=== PATIENT | male | born 1955 | race African-American/Black ===

== ENCOUNTER 2021-11-27 16:20 | Inpatient (IN) | payer BC, OTHER ==
[~2021-11-27] VITALS: Ht 167.6 cm; Wt 97.5 kg
[2021-11-27] MEDS ORDERED: SODIUM CHLORIDE 0.9% 1,000 ML IV ONE (16:45)
[2021-11-27] MEDS ORDERED: INSULIN REGULAR (DRIP) 100 UNITS in SODIUM CHLORIDE 0.9% 100 ML IV ONE (16:45)
[2021-11-27] MEDS ORDERED: INSULIN REGULAR 100U/100ML PMX 100 ML IV SCH ×2 (17:00→20:30)
[2021-11-27 17:05] LABS: BG BASE EXCESS -5.5 mmol/L (-2.0-2.0); BG CARBOXYHEMOGLOBIN 1.2 % (0.5-1.5); BG FRACTION INSPIRED OXYGEN 44; BG HCO3 ACT 18.8 mmol/L (22.0-26.0); BG METHEMOGLOBIN 0.4 % (0.0-1.5); BG OXYHEMOGLOBIN 97.4 % (94.0-97.0); BG PCO2 33.6 mmHg (35.0-45.0); BG PH 7.366 (7.350-7.450); BG PO2 141.4 mmHg (75.0-100.0); BG SAMPLE SITE RIGHT BRACHIAL; BG TOTAL HEMOGLOBIN 14.4 g/dL (12.0-18.0); BG VENT MODE NASAL CANNULA
[2021-11-27 17:09] LABS: HEMOGLOBIN. 13.2 g/dL (14.0-18.0); MEAN CORPUSCULAR HEMOGLOBIN 30.4 pg (28.0-32.0); MEAN CORPUSCULAR VOLUME 93.9 fL (80.0-94.0); MEAN PLATELET VOLUME 8.3 fl (7.4-10.4); PLATELET 256 x1000/uL (130-400); RED BLOOD CELL COUNT 4.36 mill/uL (4.7-6.1); RED CELL DISTRIBUTION WIDTH 15.5 % (11.6-14.6)
[2021-11-27 17:17] LABS: CHLORIDE 93 mEq/L (98-107)
[2021-11-27 17:46] LABS: PHOSPHORUS 8.3 mg/dL (2.5-4.9)
[2021-11-27 18:02] LABS: BETA HYDROXYBUTYRATE 0.2 mMol/L (0.0-0.3)
[2021-11-27 18:11] LABS: CLARITY URINE TURBID (CLEAR); COLOR URINE YELLOW (YELLOW); KETONES URINE NEGATIVE (NEGATIVE); LEUKOCYTE ESTERASE URINE 3+ (NEGATIVE); NITRITE URINE POSITIVE (NEGATIVE); OCCULT BLOOD URINE 3+ (NEGATIVE); PH URINE 5.5 (4.5-8.0); PROTEIN URINE 3+ (NEGATIVE); SPECIFIC GRAVITY URINE 1.014 (1.005-1.030); UROBILINOGEN URINE 0.2 E.U./dL (0.2-1.0)
[2021-11-27] MEDS ORDERED: CALCIUM GLUCONATE 1,000 MG in DEXT 5% WATER 100 ML IV ONE (18:15)
[2021-11-27 18:30] LABS: PLATELET ESTIMATE NORMAL
[2021-11-27] MEDS ORDERED: VANCOMYCIN 1G PREMIX 200 ML IV ONE (18:30)
[2021-11-27] MEDS ORDERED: CEFTRIAXONE 1 G PREMIX 50 ML IV ONE (18:30)
[2021-11-27] MEDS ORDERED: CALCIUM GLUCONATE 1GM PREMIX 50 ML IV NR (19:30)
[2021-11-27] MEDS ORDERED: NOREPINEPHRINE 8MG/250ML PMX 250 ML IV ONE (19:45)
[2021-11-27] MEDS ORDERED: DEXTROSE 50% WATER 50ML SYRINGE IV PRN ×2 (20:30)
[2021-11-27] MEDS ORDERED: MAGNESIUM/ALUMINUM HYDROXIDE/SIMETHICONE 30ML UDC PO PRN (20:30)
[2021-11-27] MEDS ORDERED: ZOLPIDEM TARTRATE 5MG TABLET PO PRN (20:30)
[2021-11-27] MEDS ORDERED: KETOROLAC 15MG/ML VIAL IV PRN (20:30)
[2021-11-27] MEDS ORDERED: NOREPINEPHRINE 8 MG in DEXT 5% WATER 242 ML IV PRN (20:30)
[2021-11-27] MEDS ORDERED: SODIUM CHLORIDE 0.9% 1000ML BAG (SEPSIS BOLUS) IV SCH (20:30)
[2021-11-27] MEDS ORDERED: ONDANSETRON HCL 4MG/2ML INJ IV PRN (20:30)
[2021-11-27] MEDS ORDERED: CLONIDINE 0.1MG TABLET PO PRN (20:30)
[2021-11-27] MEDS ORDERED: ENOXAPARIN 40MG/0.4ML SYR SUBCUT SCH (20:30)
[2021-11-27] MEDS ORDERED: NITROGLYCERIN 0.4MG TABLET SL SL PRN (20:30)
[2021-11-27] MEDS ORDERED: IPRATROPIUM/ALBUTEROL 0.5-3(2.5)MG/3ML NEB NEB PRN (20:30)
[2021-11-27] MEDS ORDERED: ACETAMINOPHEN 325MG TABLET PO PRN (20:30)
[2021-11-27] MEDS ORDERED: GUAIFENESIN 200MG/10ML SUGAR FREE UDC PO PRN (20:30)
[2021-11-27 21:00] LABS: *AMPHETAMINES SCREEN URINE NEGATIVE (NEGATIVE); *BARBITURATES SCREEN URINE NEGATIVE (NEGATIVE); *BENZODIAZEPINES SCREEN URINE NEGATIVE (NEGATIVE); *COCAINE SCREEN URINE NEGATIVE (NEGATIVE); CANNABINOID URINE SCREEN NEGATIVE (NEGATIVE); METHADONE URINE SCREEN NEGATIVE (NEGATIVE); OPIATES URINE SCREEN NEGATIVE (NEGATIVE); PHENCYCLIDINE URINE SCREEN NEGATIVE (NEGATIVE)
[2021-11-27] MEDS ORDERED: NOREPINEPHRINE 8MG/250ML PMX 250 ML IV PRN (21:00)
[2021-11-27] MEDS: BLOOD SUGAR DIAGNOSTIC STRIP TEST SCH ×2 (21:10→22:19)
[2021-11-27 21:23] LABS: VITAMIN B12 SERUM 1494 pg/mL (211-911)
[2021-11-27 21:28] LABS: FOLIC ACID (FOLATE) SERUM > 20.00 ng/mL (>5.38)
[2021-11-27] MEDS: SODIUM CHLORIDE 0.9% 1,000 ML IV SCH (21:41)
[2021-11-27] MEDS: ENOXAPARIN 30MG/0.3ML SYR SUBCUT SCH (21:41)
[2021-11-27] MEDS ORDERED: VANCOMYCIN 1G PREMIX 200 ML IV SCH (22:00)
[2021-11-27] MEDS ORDERED: PIPERACILLIN/TAZ 3.375G PREMIX 50 ML IV SCH ×2 (22:00)
[2021-11-27 22:58] LABS: CREATINE KINASE MB FRACTION 195.3 ng/mL (0.5-3.6)
[2021-11-28] VITALS (114 sets, daily range): BP systolic 50–177; BP diastolic 24–101
[2021-11-28] MEDS: NOREPINEPHRINE 8 MG in DEXT 5% WATER 242 ML IV PRN ×4 (00:30→19:03)
[2021-11-28] MEDS: SODIUM CHLORIDE 0.9% 1,000 ML IV SCH (00:30)
[2021-11-28] MEDS: BLOOD SUGAR DIAGNOSTIC STRIP TEST SCH ×19 (01:00→23:53)
[2021-11-28 06:00] LABS: HEMATOCRIT. 42.9 % (42.0-52.0); HEMOGLOBIN. 14.2 g/dL (14.0-18.0); MEAN CORPUSCULAR HEMOGLOBIN 30.6 pg (28.0-32.0); MEAN CORPUSCULAR VOLUME 92.8 fL (80.0-94.0); MEAN PLATELET VOLUME 8.2 fl (7.4-10.4); PLATELET 232 x1000/uL (130-400); RED BLOOD CELL COUNT 4.63 mill/uL (4.7-6.1); RED CELL DISTRIBUTION WIDTH 15.8 % (11.6-14.6)
[2021-11-28 06:48] LABS: CREATINE KINASE MB FRACTION 133.6 ng/mL (0.5-3.6)
[2021-11-28 07:13] LABS: CHLORIDE 103 mEq/L (98-107)
[2021-11-28 07:41] LABS: PHOSPHORUS 8.3 mg/dL (2.5-4.9)
[2021-11-28 07:52] LABS: PLATELET ESTIMATE NORMAL
[2021-11-28 08:29] LABS: CREATINE KINASE 72777 IU/L (39-308)
[2021-11-28] MEDS: ASPIRIN 325MG EC TABLET PO SCH ×2 (08:46→08:50)
[2021-11-28] MEDS: PANTOPRAZOLE SODIUM 40 MG/VIAL IV SCH (08:46)
[2021-11-28] MEDS ORDERED: PIPERACILLIN/TAZ 3.375G PREMIX 50 ML IV SCH (09:00)
[2021-11-28] MEDS: PIPERACILLIN/TAZOBACTAM 3.375 G in DEXTROSE 5% WATER 50 ML IV SCH ×2 (09:32→21:42)
[2021-11-28] MEDS ORDERED: SODIUM POLYSTYRENE SULFONATE 15 G/60 ML BOT PO NR (10:00)
[2021-11-28] MEDS ORDERED: VANCOMYCIN 2,000 MG in DEXT 5% WATER 500 ML IV SCH (10:00)
[2021-11-28] MEDS ORDERED: SODIUM BICARBONATE 8.4% 1 MEQ/ML 50ML SYR IV NR (10:00)
[2021-11-28] MEDS ORDERED: DEXT 5%/0.9% NACL 1,000 ML IV SCH (11:15)
[2021-11-28] MEDS: SODIUM BICARBONATE 75 MEQ in SODIUM CHLORIDE 0.45% 1,000 ML IV SCH (11:38)
[2021-11-28 12:37] LABS: INR 1.1; PARTIAL THROMBOPLASTIN TIME 29.6 sec (23.4-31.0); PROTHROMBIN TIME 11.5 sec (9.6-11.0)
[2021-11-28 13:02] LABS: HEPATITIS B SURFACE ANTIGEN NEGATIVE
[2021-11-28] MEDS ORDERED: LIDOCAINE HCL/PF 1% 10 MG/ML 5ML VIAL ONE (13:08)
[2021-11-28] MEDS: INSULIN REGULAR 100U/100ML PMX 100 ML IV SCH ×2 (17:43)
[2021-11-28] MEDS: ENOXAPARIN 30MG/0.3ML SYR SUBCUT SCH (21:18)
[2021-11-29] VITALS (96 sets, daily range): BP systolic 47–155; BP diastolic 17–116
[2021-11-29] MEDS: SODIUM BICARBONATE 75 MEQ in SODIUM CHLORIDE 0.45% 1,000 ML IV SCH ×4 (00:04→21:54)
[2021-11-29] MEDS: NOREPINEPHRINE 8 MG in DEXT 5% WATER 242 ML IV PRN ×4 (00:11→22:49)
[2021-11-29] MEDS: BLOOD SUGAR DIAGNOSTIC STRIP TEST SCH ×20 (01:00→22:49)
[2021-11-29 05:37] LABS: HEMATOCRIT. 38.1 % (42.0-52.0); HEMOGLOBIN. 12.8 g/dL (14.0-18.0); MEAN CORPUSCULAR HEMOGLOBIN 30.7 pg (28.0-32.0); MEAN CORPUSCULAR VOLUME 91.4 fL (80.0-94.0); MEAN PLATELET VOLUME 8.8 fl (7.4-10.4); PLATELET 204 x1000/uL (130-400); RED BLOOD CELL COUNT 4.17 mill/uL (4.7-6.1); RED CELL DISTRIBUTION WIDTH 15.4 % (11.6-14.6)
[2021-11-29 06:03] LABS: PHOSPHORUS 7.8 mg/dL (2.5-4.9)
[2021-11-29 06:19] LABS: CHLORIDE 102 mEq/L (98-107)
[2021-11-29 06:44] LABS: CREATINE KINASE 34245 IU/L (39-308)
[2021-11-29] MEDS: PANTOPRAZOLE SODIUM 40 MG/VIAL IV SCH (09:15)
[2021-11-29] MEDS: ASPIRIN 325MG EC TABLET PO SCH (09:16)
[2021-11-29] MEDS: PIPERACILLIN/TAZOBACTAM 3.375 G in DEXTROSE 5% WATER 50 ML IV SCH ×2 (09:16→21:51)
[2021-11-29 10:51] LABS: PLATELET ESTIMATE NORMAL
[2021-11-29] MEDS: ENOXAPARIN 30MG/0.3ML SYR SUBCUT SCH (21:54)
[2021-11-30] VITALS (95 sets, daily range): BP systolic 58–167; BP diastolic 22–119
[2021-11-30] MEDS: BLOOD SUGAR DIAGNOSTIC STRIP TEST SCH ×11 (00:39→18:23)
[2021-11-30] MEDS: ACETAMINOPHEN 325MG TABLET PO PRN ×2 (01:38→12:45)
[2021-11-30] MEDS: NOREPINEPHRINE 8 MG in DEXT 5% WATER 242 ML IV PRN ×2 (01:43→08:57)
[2021-11-30 05:09] LABS: CHLORIDE 98 mEq/L (98-107)
[2021-11-30 05:11] LABS: HEMATOCRIT. 34.5 % (42.0-52.0); HEMOGLOBIN. 11.4 g/dL (14.0-18.0); MEAN CORPUSCULAR VOLUME 90.9 fL (80.0-94.0); MEAN PLATELET VOLUME 8.4 fl (7.4-10.4); PLATELET 196 x1000/uL (130-400); RED BLOOD CELL COUNT 3.79 mill/uL (4.7-6.1); RED CELL DISTRIBUTION WIDTH 15.1 % (11.6-14.6)
[2021-11-30 05:33] LABS: PHOSPHORUS 6.5 mg/dL (2.5-4.9)
[2021-11-30 06:07] LABS: CREATINE KINASE 35304 IU/L (39-308)
[2021-11-30] MEDS: PIPERACILLIN/TAZOBACTAM 3.375 G in DEXTROSE 5% WATER 50 ML IV SCH (08:04)
[2021-11-30] MEDS: ASPIRIN 325MG EC TABLET PO SCH (08:04)
[2021-11-30] MEDS: PANTOPRAZOLE SODIUM 40 MG/VIAL IV SCH (08:04)
[2021-11-30] MEDS ORDERED: DEXTROSE 50% WATER 50ML SYRINGE IV PRN (08:45)
[2021-11-30] MEDS: INSULIN GLARGINE 100 UNITS/ML SUBCUT SCH (10:07)
[2021-11-30 10:31] LABS: PLATELET ESTIMATE NORMAL
[2021-11-30] MEDS: INSULIN LISPRO 100 UNITS/ML SUBCUT SCH ×3 (12:42→21:00)
[2021-11-30] MEDS: MIDODRINE HCL 5MG TABLET PO SCH ×2 (12:45→16:40)
[2021-11-30] MEDS: NOREPINEPHRINE 32 MG in DEXT 5% WATER 218 ML IV PRN (13:53)
[2021-11-30] MEDS: MEROPENEM 1000MG in NORMAL SALINE 100ML IV SCH (14:15)
[2021-11-30] MEDS: ENOXAPARIN 30MG/0.3ML SYR SUBCUT SCH (20:27)
[2021-12-01] VITALS (89 sets, daily range): BP systolic 71–157; BP diastolic 38–86
[2021-12-01] MEDS: BLOOD SUGAR DIAGNOSTIC STRIP TEST SCH ×4 (00:18→18:09)
[2021-12-01] MEDS: INSULIN LISPRO 100 UNITS/ML SUBCUT SCH ×4 (00:26→18:00)
[2021-12-01 05:03] LABS: HEMATOCRIT. 27.5 % (42.0-52.0); HEMOGLOBIN. 9.2 g/dL (14.0-18.0); MEAN CORPUSCULAR HEMOGLOBIN 30.4 pg (28.0-32.0); MEAN CORPUSCULAR VOLUME 91.2 fL (80.0-94.0); PLATELET 174 x1000/uL (130-400); RED BLOOD CELL COUNT 3.02 mill/uL (4.7-6.1); RED CELL DISTRIBUTION WIDTH 14.8 % (11.6-14.6)
[2021-12-01 05:54] LABS: PHOSPHORUS 8.3 mg/dL (2.5-4.9)
[2021-12-01 08:11] LABS: PLATELET ESTIMATE NORMAL
[2021-12-01] MEDS: ASPIRIN 325MG EC TABLET PO SCH (08:36)
[2021-12-01] MEDS: MIDODRINE HCL 5MG TABLET PO SCH ×3 (08:36→18:10)
[2021-12-01] MEDS: PANTOPRAZOLE SODIUM 40 MG/VIAL IV SCH (08:36)
[2021-12-01] MEDS: INSULIN GLARGINE 100 UNITS/ML SUBCUT SCH (09:39)
[2021-12-01] MEDS: MEROPENEM 1000MG in NORMAL SALINE 100ML IV SCH (12:13)
[2021-12-01] MEDS: ENOXAPARIN 40MG/0.4ML SYR SUBCUT SCH (18:10)
[2021-12-01] MEDS: ACETAMINOPHEN 325MG TABLET PO PRN (18:59)
[2021-12-01] MEDS: CALCIUM GLUCONATE 1GM PREMIX 50 ML IV SCH (20:21)
[2021-12-01] MEDS ORDERED: CALCIUM GLUCONATE 100MG/ML 10ML VIAL IV SCH (21:00)
[2021-12-02] VITALS (76 sets, daily range): BP systolic 59–143; BP diastolic 37–82
[2021-12-02] MEDS: BLOOD SUGAR DIAGNOSTIC STRIP TEST SCH ×5 (00:05→23:05)
[2021-12-02] MEDS: ACETAMINOPHEN 325MG TABLET PO PRN ×2 (04:32→12:24)
[2021-12-02] MEDS: INSULIN LISPRO 100 UNITS/ML SUBCUT SCH ×5 (06:00→23:10)
[2021-12-02 06:10] LABS: HEMATOCRIT. 27.2 % (42.0-52.0); HEMOGLOBIN. 9.2 g/dL (14.0-18.0); MEAN CORPUSCULAR HEMOGLOBIN 30.4 pg (28.0-32.0); MEAN CORPUSCULAR VOLUME 90.3 fL (80.0-94.0); MEAN PLATELET VOLUME 7.9 fl (7.4-10.4); PLATELET 170 x1000/uL (130-400); RED BLOOD CELL COUNT 3.01 mill/uL (4.7-6.1); RED CELL DISTRIBUTION WIDTH 14.8 % (11.6-14.6)
[2021-12-02 06:23] LABS: PHOSPHORUS 7.3 mg/dL (2.5-4.9)
[2021-12-02 07:56] LABS: PLATELET ESTIMATE NORMAL
[2021-12-02] MEDS: ASPIRIN 325MG EC TABLET PO SCH (09:07)
[2021-12-02] MEDS: MIDODRINE HCL 5MG TABLET PO SCH ×3 (09:07→16:54)
[2021-12-02] MEDS: DOCUSATE SODIUM 100MG CAPSULE PO PRN (09:07)
[2021-12-02] MEDS: PANTOPRAZOLE SODIUM 40 MG/VIAL IV SCH (09:08)
[2021-12-02] MEDS: CALCIUM GLUCONATE 1GM PREMIX 50 ML IV SCH ×2 (09:08→20:04)
[2021-12-02] MEDS: INSULIN GLARGINE 100 UNITS/ML SUBCUT SCH (10:12)
[2021-12-02] MEDS: MEROPENEM 1000MG in NORMAL SALINE 100ML IV SCH (12:57)
[2021-12-02] MEDS: ENOXAPARIN 40MG/0.4ML SYR SUBCUT SCH (16:53)
[2021-12-02] MEDS: NOREPINEPHRINE 32 MG in DEXT 5% WATER 218 ML IV PRN (23:09)
[2021-12-03] VITALS (76 sets, daily range): BP systolic 70–139; BP diastolic 35–99
[2021-12-03] MEDS: BLOOD SUGAR DIAGNOSTIC STRIP TEST SCH ×4 (05:17→23:42)
[2021-12-03] MEDS: INSULIN LISPRO 100 UNITS/ML SUBCUT SCH ×4 (05:25→23:56)
[2021-12-03 05:27] LABS: HEMOGLOBIN. 8.5 g/dL (14.0-18.0); MEAN PLATELET VOLUME 7.6 fl (7.4-10.4); PLATELET 187 x1000/uL (130-400); RED BLOOD CELL COUNT 2.74 mill/uL (4.7-6.1); RED CELL DISTRIBUTION WIDTH 14.9 % (11.6-14.6)
[2021-12-03 05:37] LABS: CHLORIDE 95 mEq/L (98-107)
[2021-12-03 06:19] LABS: PHOSPHORUS 8.2 mg/dL (2.5-4.9)
[2021-12-03 06:48] LABS: CREATINE KINASE 7201 IU/L (39-308)
[2021-12-03 07:37] LABS: PLATELET ESTIMATE NORMAL
[2021-12-03] MEDS: ASPIRIN 325MG EC TABLET PO SCH (11:07)
[2021-12-03] MEDS: MIDODRINE HCL 5MG TABLET PO SCH ×3 (11:08→17:13)
[2021-12-03] MEDS: PANTOPRAZOLE SODIUM 40 MG/VIAL IV SCH (11:08)
[2021-12-03] MEDS: CALCIUM GLUCONATE 1GM PREMIX 50 ML IV SCH ×2 (11:09→20:49)
[2021-12-03] MEDS: INSULIN GLARGINE 100 UNITS/ML SUBCUT SCH (11:09)
[2021-12-03] MEDS: MEROPENEM 1000MG in NORMAL SALINE 100ML IV SCH (12:46)
[2021-12-03] MEDS: ENOXAPARIN 40MG/0.4ML SYR SUBCUT SCH (17:14)
[2021-12-04] VITALS (60 sets, daily range): BP systolic 76–134; BP diastolic 42–89
[2021-12-04] MEDS: BLOOD SUGAR DIAGNOSTIC STRIP TEST SCH ×3 (06:00→17:39)
[2021-12-04 06:11] LABS: HEMATOCRIT. 25.1 % (42.0-52.0); HEMOGLOBIN. 8.5 g/dL (14.0-18.0); MEAN CORPUSCULAR HEMOGLOBIN 31.2 pg (28.0-32.0); MEAN CORPUSCULAR VOLUME 92.3 fL (80.0-94.0); MEAN PLATELET VOLUME 7.6 fl (7.4-10.4); PLATELET 247 x1000/uL (130-400); RED BLOOD CELL COUNT 2.72 mill/uL (4.7-6.1); RED CELL DISTRIBUTION WIDTH 14.7 % (11.6-14.6)
[2021-12-04 07:12] LABS: PHOSPHORUS 6.7 mg/dL (2.5-4.9)
[2021-12-04] MEDS: INSULIN LISPRO 100 UNITS/ML SUBCUT SCH ×3 (07:20→18:00)
[2021-12-04 07:42] LABS: PLATELET ESTIMATE NORMAL
[2021-12-04] MEDS: ASPIRIN 325MG EC TABLET PO SCH (08:59)
[2021-12-04] MEDS: PANTOPRAZOLE SODIUM 40 MG/VIAL IV SCH (08:59)
[2021-12-04] MEDS: MIDODRINE HCL 5MG TABLET PO SCH ×3 (09:00→17:39)
[2021-12-04] MEDS: CALCIUM GLUCONATE 1GM PREMIX 50 ML IV SCH ×2 (09:56→22:27)
[2021-12-04] MEDS: INSULIN GLARGINE 100 UNITS/ML SUBCUT SCH (10:30)
[2021-12-04] MEDS: MEROPENEM 1000MG in NORMAL SALINE 100ML IV SCH (13:12)
[2021-12-04] MEDS: ENOXAPARIN 40MG/0.4ML SYR SUBCUT SCH (16:55)
[2021-12-05] VITALS (114 sets, daily range): BP systolic 69–175; BP diastolic 49–102
[2021-12-05] MEDS: BLOOD SUGAR DIAGNOSTIC STRIP TEST SCH ×4 (00:10→23:36)
[2021-12-05 05:36] LABS: HEMATOCRIT. 26.4 % (42.0-52.0); HEMOGLOBIN. 8.9 g/dL (14.0-18.0); MEAN CORPUSCULAR HEMOGLOBIN 30.7 pg (28.0-32.0); MEAN CORPUSCULAR VOLUME 90.9 fL (80.0-94.0); MEAN PLATELET VOLUME 7.2 fl (7.4-10.4); PLATELET 292 x1000/uL (130-400); RED CELL DISTRIBUTION WIDTH 14.7 % (11.6-14.6)
[2021-12-05 06:40] LABS: PHOSPHORUS 7.2 mg/dL (2.5-4.9)
[2021-12-05 07:33] LABS: PLATELET ESTIMATE NORMAL
[2021-12-05] MEDS: ASPIRIN 325MG EC TABLET PO SCH (09:00)
[2021-12-05] MEDS: CALCIUM GLUCONATE 1GM PREMIX 50 ML IV SCH ×2 (09:00→20:37)
[2021-12-05] MEDS: PANTOPRAZOLE SODIUM 40 MG/VIAL IV SCH (10:06)
[2021-12-05] MEDS: INSULIN GLARGINE 100 UNITS/ML SUBCUT SCH (10:07)
[2021-12-05] MEDS: MIDODRINE HCL 5MG TABLET PO SCH ×3 (10:07→18:38)
[2021-12-05] MEDS: INSULIN LISPRO 100 UNITS/ML SUBCUT SCH ×4 (12:00→23:36)
[2021-12-05] MEDS: MEROPENEM 1000MG in NORMAL SALINE 100ML IV SCH (13:07)
[2021-12-05] MEDS: ENOXAPARIN 40MG/0.4ML SYR SUBCUT SCH (16:33)
[2021-12-05] MEDS: NOREPINEPHRINE 32 MG in DEXT 5% WATER 218 ML IV PRN (18:58)
[2021-12-06] VITALS (73 sets, daily range): BP systolic 87–182; BP diastolic 56–110
[2021-12-06 06:11] LABS: HEMATOCRIT. 28.2 % (42.0-52.0); HEMOGLOBIN. 9.7 g/dL (14.0-18.0); MEAN CORPUSCULAR HEMOGLOBIN 31.1 pg (28.0-32.0); MEAN CORPUSCULAR VOLUME 90.3 fL (80.0-94.0); MEAN PLATELET VOLUME 7.1 fl (7.4-10.4); PLATELET 377 x1000/uL (130-400); RED BLOOD CELL COUNT 3.12 mill/uL (4.7-6.1); RED CELL DISTRIBUTION WIDTH 15.6 % (11.6-14.6)
[2021-12-06] MEDS: BLOOD SUGAR DIAGNOSTIC STRIP TEST SCH ×3 (06:45→18:49)
[2021-12-06] MEDS: INSULIN LISPRO 100 UNITS/ML SUBCUT SCH ×3 (06:51→18:27)
[2021-12-06 07:31] LABS: PLATELET ESTIMATE NORMAL
[2021-12-06] MEDS: CALCIUM GLUCONATE 1GM PREMIX 50 ML IV SCH (08:14)
[2021-12-06] MEDS: ASPIRIN 325MG EC TABLET PO SCH (08:15)
[2021-12-06] MEDS: MIDODRINE HCL 5MG TABLET PO SCH ×3 (08:15→18:49)
[2021-12-06] MEDS: PANTOPRAZOLE SODIUM 40 MG/VIAL IV SCH (08:15)
[2021-12-06] MEDS: INSULIN GLARGINE 100 UNITS/ML SUBCUT SCH (09:36)
[2021-12-06] MEDS: ENOXAPARIN 40MG/0.4ML SYR SUBCUT SCH (18:52)
[2021-12-07] VITALS (89 sets, daily range): BP systolic 92–170; BP diastolic 50–114
[2021-12-07] MEDS: CALCIUM GLUCONATE 1GM PREMIX 50 ML IV SCH ×3 (00:30→22:43)
[2021-12-07] MEDS: BLOOD SUGAR DIAGNOSTIC STRIP TEST SCH ×4 (00:31→17:22)
[2021-12-07] MEDS: INSULIN LISPRO 100 UNITS/ML SUBCUT SCH ×4 (00:41→17:24)
[2021-12-07] MEDS: NOREPINEPHRINE 32 MG in DEXT 5% WATER 218 ML IV PRN ×2 (01:55→22:41)
[2021-12-07 05:29] LABS: HEMATOCRIT. 25.6 % (42.0-52.0); HEMOGLOBIN. 8.7 g/dL (14.0-18.0); MEAN CORPUSCULAR HEMOGLOBIN 30.9 pg (28.0-32.0); MEAN CORPUSCULAR VOLUME 91.5 fL (80.0-94.0); MEAN PLATELET VOLUME 7.5 fl (7.4-10.4); PLATELET 399 x1000/uL (130-400); RED CELL DISTRIBUTION WIDTH 15.4 % (11.6-14.6)
[2021-12-07 06:02] LABS: PHOSPHORUS 7.5 mg/dL (2.5-4.9)
[2021-12-07 07:58] LABS: PLATELET ESTIMATE NORMAL
[2021-12-07] MEDS: ASPIRIN 325MG EC TABLET PO SCH (08:20)
[2021-12-07] MEDS: PANTOPRAZOLE SODIUM 40 MG/VIAL IV SCH (08:20)
[2021-12-07] MEDS: MIDODRINE HCL 5MG TABLET PO SCH ×3 (08:20→17:12)
[2021-12-07] MEDS: INSULIN GLARGINE 100 UNITS/ML SUBCUT SCH (09:13)
[2021-12-07] MEDS: MEROPENEM 1,000 MG in SODIUM CHLORIDE 0.9% 100 ML IV SCH (15:00)
[2021-12-07] MEDS: ENOXAPARIN 40MG/0.4ML SYR SUBCUT SCH (17:12)
[2021-12-07] MEDS: FLUDROCORTISONE ACETATE 0.1MG TABLET PO SCH (17:13)
[2021-12-08] VITALS (61 sets, daily range): BP systolic 85–184; BP diastolic 44–91
[2021-12-08 05:39] LABS: HEMATOCRIT. 21.1 % (42.0-52.0); MEAN CORPUSCULAR HEMOGLOBIN 30.4 pg (28.0-32.0); MEAN CORPUSCULAR VOLUME 91.9 fL (80.0-94.0); MEAN PLATELET VOLUME 7.2 fl (7.4-10.4); PLATELET 417 x1000/uL (130-400); RED CELL DISTRIBUTION WIDTH 15.7 % (11.6-14.6)
[2021-12-08] MEDS: INSULIN LISPRO 100 UNITS/ML SUBCUT SCH ×4 (06:00→18:00)
[2021-12-08] MEDS: BLOOD SUGAR DIAGNOSTIC STRIP TEST SCH ×4 (06:27→18:00)
[2021-12-08 06:56] LABS: PHOSPHORUS 7.8 mg/dL (2.5-4.9)
[2021-12-08 07:29] LABS: PLATELET ESTIMATE INCREASED
[2021-12-08] MEDS: MIDODRINE HCL 5MG TABLET PO SCH ×3 (09:13→16:31)
[2021-12-08] MEDS: FLUDROCORTISONE ACETATE 0.1MG TABLET PO SCH (09:13)
[2021-12-08] MEDS: ASPIRIN 325MG EC TABLET PO SCH (09:13)
[2021-12-08] MEDS: PANTOPRAZOLE SODIUM 40 MG/VIAL IV SCH (09:14)
[2021-12-08] MEDS: CALCIUM GLUCONATE 1GM PREMIX 50 ML IV SCH ×2 (09:27→21:46)
[2021-12-08] MEDS: INSULIN GLARGINE 100 UNITS/ML SUBCUT SCH (10:00)
[2021-12-08] MEDS: MEROPENEM 1,000 MG in SODIUM CHLORIDE 0.9% 100 ML IV SCH (15:00)
[2021-12-08] MEDS: ENOXAPARIN 40MG/0.4ML SYR SUBCUT SCH (16:31)
[2021-12-09] VITALS (47 sets, daily range): BP systolic 83–151; BP diastolic 41–76
[2021-12-09 04:33] LABS: MEAN CORPUSCULAR HEMOGLOBIN 30.8 pg (28.0-32.0); MEAN CORPUSCULAR VOLUME 91.3 fL (80.0-94.0); MEAN PLATELET VOLUME 6.6 fl (7.4-10.4); PLATELET 419 x1000/uL (130-400); RED BLOOD CELL COUNT 2.13 mill/uL (4.7-6.1); RED CELL DISTRIBUTION WIDTH 15.5 % (11.6-14.6)
[2021-12-09 04:56] LABS: HEMATOCRIT. 19.5 % (42.0-52.0); HEMOGLOBIN. 6.6 g/dL (14.0-18.0)
[2021-12-09 04:58] LABS: CHLORIDE 103 mEq/L (98-107)
[2021-12-09 05:08] LABS: CREATINE KINASE 387 IU/L (39-308); PHOSPHORUS 5.2 mg/dL (2.5-4.9)
[2021-12-09 07:06] LABS: PLATELET ESTIMATE SLIGHTLY INCREASED
[2021-12-09] MEDS: INSULIN LISPRO 100 UNITS/ML SUBCUT SCH ×4 (07:50→21:00)
[2021-12-09] MEDS: BLOOD SUGAR DIAGNOSTIC STRIP TEST SCH ×4 (07:50→21:44)
[2021-12-09] MEDS: CALCIUM GLUCONATE 1GM PREMIX 50 ML IV SCH ×2 (09:25→21:50)
[2021-12-09] MEDS: FLUDROCORTISONE ACETATE 0.1MG TABLET PO SCH (09:26)
[2021-12-09] MEDS: MIDODRINE HCL 5MG TABLET PO SCH ×3 (09:26→17:00)
[2021-12-09] MEDS: ASPIRIN 325MG EC TABLET PO SCH (09:26)
[2021-12-09] MEDS: PANTOPRAZOLE SODIUM 40 MG/VIAL IV SCH (09:26)
[2021-12-09] MEDS: INSULIN GLARGINE 100 UNITS/ML SUBCUT SCH (09:27)
[2021-12-09] MEDS: MEROPENEM 1,000 MG in SODIUM CHLORIDE 0.9% 100 ML IV SCH (15:11)
[2021-12-09] MEDS: ENOXAPARIN 40MG/0.4ML SYR SUBCUT SCH (16:00)
[2021-12-10] VITALS (97 sets, daily range): BP systolic 71–132; BP diastolic 28–73
[2021-12-10 05:41] LABS: MEAN CORPUSCULAR HEMOGLOBIN 30.3 pg (28.0-32.0); MEAN CORPUSCULAR VOLUME 92.5 fL (80.0-94.0); MEAN PLATELET VOLUME 6.9 fl (7.4-10.4); PLATELET 477 x1000/uL (130-400); RED BLOOD CELL COUNT 2.11 mill/uL (4.7-6.1); RED CELL DISTRIBUTION WIDTH 15.7 % (11.6-14.6)
[2021-12-10 06:06] LABS: HEMATOCRIT. 19.5 % (42.0-52.0); HEMOGLOBIN. 6.4 g/dL (14.0-18.0)
[2021-12-10 07:03] LABS: PHOSPHORUS 5.3 mg/dL (2.5-4.9)
[2021-12-10 07:33] LABS: PLATELET ESTIMATE INCREASED
[2021-12-10] MEDS: INSULIN LISPRO 100 UNITS/ML SUBCUT SCH ×4 (07:50→21:00)
[2021-12-10] MEDS: BLOOD SUGAR DIAGNOSTIC STRIP TEST SCH ×4 (08:12→21:18)
[2021-12-10] MEDS: PANTOPRAZOLE SODIUM 40 MG/VIAL IV SCH ×2 (08:13→21:18)
[2021-12-10] MEDS: MIDODRINE HCL 5MG TABLET PO SCH ×3 (08:13→16:33)
[2021-12-10] MEDS: ASPIRIN 325MG EC TABLET PO SCH (08:13)
[2021-12-10] MEDS: FLUDROCORTISONE ACETATE 0.1MG TABLET PO SCH (08:13)
[2021-12-10] MEDS: CALCIUM GLUCONATE 1GM PREMIX 50 ML IV SCH (08:13)
[2021-12-10] MEDS: CALCIUM CARBONATE 500MG TABLET CHEW PO SCH ×2 (09:31→16:33)
[2021-12-10] MEDS: IRON SUCROSE COMPLEX 100 MG/5 ML ML IV SCH (09:31)
[2021-12-10] MEDS ORDERED: EPOETIN ALFA-EPBX 4,000 UNIT/ML VIAL SUBCUT NR (10:30)
[2021-12-10] MEDS: MEROPENEM 1,000 MG in SODIUM CHLORIDE 0.9% 100 ML IV SCH (16:31)
[2021-12-10] MEDS: ENOXAPARIN 40MG/0.4ML SYR SUBCUT SCH (16:31)
[2021-12-10] MEDS: ACETAMINOPHEN 325MG TABLET PO PRN (21:18)
[2021-12-11] VITALS (70 sets, daily range): BP systolic 85–168; BP diastolic 33–78
[2021-12-11 05:40] LABS: MEAN CORPUSCULAR HEMOGLOBIN 30.6 pg (28.0-32.0); MEAN CORPUSCULAR VOLUME 92.6 fL (80.0-94.0); MEAN PLATELET VOLUME 6.6 fl (7.4-10.4); PLATELET 517 x1000/uL (130-400); RED BLOOD CELL COUNT 2.17 mill/uL (4.7-6.1); RED CELL DISTRIBUTION WIDTH 16.4 % (11.6-14.6)
[2021-12-11 06:27] LABS: HEMATOCRIT. 20.1 % (42.0-52.0); HEMOGLOBIN. 6.6 g/dL (14.0-18.0)
[2021-12-11 06:50] LABS: PHOSPHORUS 4.5 mg/dL (2.5-4.9)
[2021-12-11 07:27] LABS: PLATELET ESTIMATE INCREASED
[2021-12-11] MEDS: BLOOD SUGAR DIAGNOSTIC STRIP TEST SCH ×4 (07:50→20:36)
[2021-12-11] MEDS: INSULIN LISPRO 100 UNITS/ML SUBCUT SCH ×4 (07:50→20:36)
[2021-12-11] MEDS ORDERED: CALCIUM GLUCONATE 1GM PREMIX 50 ML IV SCH (09:00)
[2021-12-11] MEDS ORDERED: CALCITRIOL 0.25MCG CAPSULE PO SCH (09:15)
[2021-12-11] MEDS: IRON SUCROSE COMPLEX 100 MG/5 ML ML IV SCH (09:24)
[2021-12-11] MEDS: ASPIRIN 325MG EC TABLET PO SCH (09:24)
[2021-12-11] MEDS: FLUDROCORTISONE ACETATE 0.1MG TABLET PO SCH (09:24)
[2021-12-11] MEDS: PANTOPRAZOLE SODIUM 40 MG/VIAL IV SCH ×2 (09:24→20:39)
[2021-12-11] MEDS: CALCIUM CARBONATE 500MG TABLET CHEW PO SCH ×2 (09:24→17:46)
[2021-12-11] MEDS: MIDODRINE HCL 5MG TABLET PO SCH ×3 (09:24→17:47)
[2021-12-11] MEDS: MEROPENEM 1,000 MG in SODIUM CHLORIDE 0.9% 100 ML IV SCH (14:25)
[2021-12-11] MEDS: ENOXAPARIN 40MG/0.4ML SYR SUBCUT SCH (15:43)
[2021-12-12] VITALS (11 sets, daily range): BP systolic 128–160; BP diastolic 35–64
[2021-12-12] MEDS: BLOOD SUGAR DIAGNOSTIC STRIP TEST SCH ×4 (06:25→21:15)
[2021-12-12 06:53] LABS: MEAN CORPUSCULAR HEMOGLOBIN 31.2 pg (28.0-32.0); MEAN CORPUSCULAR VOLUME 92.4 fL (80.0-94.0); MEAN PLATELET VOLUME 6.6 fl (7.4-10.4); PLATELET 554 x1000/uL (130-400); RED BLOOD CELL COUNT 2.15 mill/uL (4.7-6.1); RED CELL DISTRIBUTION WIDTH 16.2 % (11.6-14.6)
[2021-12-12] MEDS: INSULIN LISPRO 100 UNITS/ML SUBCUT SCH ×4 (08:00→21:30)
[2021-12-12 08:07] LABS: HEMATOCRIT. 19.8 % (42.0-52.0); HEMOGLOBIN. 6.7 g/dL (14.0-18.0)
[2021-12-12 08:15] LABS: CHLORIDE 106 mEq/L (98-107)
[2021-12-12 08:28] LABS: PHOSPHORUS 4.1 mg/dL (2.5-4.9)
[2021-12-12] MEDS: IRON SUCROSE COMPLEX 100 MG/5 ML ML IV SCH (10:22)
[2021-12-12] MEDS: DOCUSATE SODIUM 100MG CAPSULE PO PRN (10:23)
[2021-12-12] MEDS: CALCITRIOL 0.25MCG CAPSULE PO SCH (10:23)
[2021-12-12] MEDS: MIDODRINE HCL 5MG TABLET PO SCH ×3 (10:24→17:00)
[2021-12-12] MEDS: ASPIRIN 325MG EC TABLET PO SCH (10:24)
[2021-12-12] MEDS: PANTOPRAZOLE SODIUM 40 MG/VIAL IV SCH ×2 (10:25→21:15)
[2021-12-12 13:11] LABS: NUCLEATED RED BLOOD CELLS 1 /100 WBC; PLATELET ESTIMATE INCREASED
[2021-12-12] MEDS: CALCIUM CARBONATE 500MG TABLET CHEW PO SCH ×2 (13:28→17:00)
[2021-12-12] MEDS: MEROPENEM 1,000 MG in SODIUM CHLORIDE 0.9% 100 ML IV SCH (17:08)
[2021-12-13] VITALS (12 sets, daily range): BP systolic 116–151; BP diastolic 39–75
[2021-12-13] MEDS: BLOOD SUGAR DIAGNOSTIC STRIP TEST SCH ×4 (06:50→20:48)
[2021-12-13] MEDS: CALCITRIOL 0.25MCG CAPSULE PO SCH (08:13)
[2021-12-13] MEDS: PANTOPRAZOLE SODIUM 40 MG/VIAL IV SCH ×2 (08:13→20:48)
[2021-12-13] MEDS: FERROUS SULFATE 325MG TABLET PO SCH ×2 (08:14→17:06)
[2021-12-13] MEDS: MIDODRINE HCL 5MG TABLET PO SCH (08:14)
[2021-12-13] MEDS: INSULIN LISPRO 100 UNITS/ML SUBCUT SCH ×4 (08:14→20:53)
[2021-12-13] MEDS: CALCIUM CARBONATE 500MG TABLET CHEW PO SCH ×2 (08:15→17:06)
[2021-12-13] MEDS: MEROPENEM 1,000 MG in SODIUM CHLORIDE 0.9% 100 ML IV SCH (15:08)
[2021-12-14] VITALS (12 sets, daily range): BP systolic 112–150; BP diastolic 44–120
[2021-12-14] MEDS: BLOOD SUGAR DIAGNOSTIC STRIP TEST SCH ×4 (06:20→21:36)
[2021-12-14] MEDS: PANTOPRAZOLE SODIUM 40 MG/VIAL IV SCH ×2 (09:13→21:43)
[2021-12-14] MEDS: FERROUS SULFATE 325MG TABLET PO SCH ×2 (09:14→17:50)
[2021-12-14] MEDS: INSULIN LISPRO 100 UNITS/ML SUBCUT SCH ×4 (09:14→21:45)
[2021-12-14] MEDS: CALCITRIOL 0.25MCG CAPSULE PO SCH (09:14)
[2021-12-14] MEDS: CALCIUM CARBONATE 500MG TABLET CHEW PO SCH ×2 (09:14→17:50)
[2021-12-14 10:19] LABS: HEMATOCRIT. 22.1 % (42.0-52.0); HEMOGLOBIN. 7.5 g/dL (14.0-18.0); MEAN CORPUSCULAR HEMOGLOBIN 31.4 pg (28.0-32.0); MEAN CORPUSCULAR VOLUME 92.8 fL (80.0-94.0); MEAN PLATELET VOLUME 6.6 fl (7.4-10.4); PLATELET 546 x1000/uL (130-400); RED BLOOD CELL COUNT 2.38 mill/uL (4.7-6.1); RED CELL DISTRIBUTION WIDTH 16.8 % (11.6-14.6)
[2021-12-14 13:36] LABS: PLATELET ESTIMATE INCREASED
[2021-12-14] MEDS: MEROPENEM 1,000 MG in SODIUM CHLORIDE 0.9% 100 ML IV SCH (14:25)
[2021-12-14] MEDS: POLYETHYLENE GLYCOL 3350 (17GM) 1 DOSE PACK PO SCH (17:51)
[2021-12-15] VITALS (11 sets, daily range): BP systolic 112–152; BP diastolic 59–77
[2021-12-15] MEDS: INSULIN LISPRO 100 UNITS/ML SUBCUT SCH ×4 (06:50→22:57)
[2021-12-15] MEDS: BLOOD SUGAR DIAGNOSTIC STRIP TEST SCH ×4 (06:51→21:00)
[2021-12-15 06:53] LABS: INR 1.1; PROTHROMBIN TIME 11.9 sec (9.6-11.0)
[2021-12-15 06:55] LABS: HEMATOCRIT. 22.9 % (42.0-52.0); HEMOGLOBIN. 7.6 g/dL (14.0-18.0); MEAN CORPUSCULAR HEMOGLOBIN 30.5 pg (28.0-32.0); MEAN PLATELET VOLUME 6.6 fl (7.4-10.4); PLATELET 586 x1000/uL (130-400); RED BLOOD CELL COUNT 2.49 mill/uL (4.7-6.1); RED CELL DISTRIBUTION WIDTH 16.3 % (11.6-14.6)
[2021-12-15 07:04] LABS: CHLORIDE 107 mEq/L (98-107)
[2021-12-15 07:13] LABS: PHOSPHORUS 3.6 mg/dL (2.5-4.9)
[2021-12-15] MEDS: FERROUS SULFATE 325MG TABLET PO SCH ×2 (07:20→18:03)
[2021-12-15] MEDS: ASCORBIC ACID 500 MG TABLET PO SCH ×2 (08:00→18:03)
[2021-12-15] MEDS: PANTOPRAZOLE SODIUM 40 MG/VIAL IV SCH ×2 (08:15→22:56)
[2021-12-15] MEDS ORDERED: CALCITRIOL 0.25MCG CAPSULE PO SCH (09:00)
[2021-12-15] MEDS: CALCIUM CARBONATE 500MG TABLET CHEW PO SCH (09:00)
[2021-12-15] MEDS: POLYETHYLENE GLYCOL 3350 (17GM) 1 DOSE PACK PO SCH (09:00)
[2021-12-15 12:31] LABS: NUCLEATED RED BLOOD CELLS 1 /100 WBC; PLATELET ESTIMATE INCREASED
[2021-12-15] MEDS ORDERED: PROPOFOL 200MG/20ML VIAL IV ONE (15:49)
[2021-12-15] MEDS ORDERED: MIDAZOLAM HCL 2 MG/2 ML VIAL ONE (15:51)
[2021-12-15] MEDS ORDERED: DEXAMETHASONE 4MG/ML 1ML VIAL ONE (15:54)
[2021-12-15] MEDS ORDERED: ONDANSETRON HCL 4MG/2ML INJ ONE (15:54)
[2021-12-15] MEDS ORDERED: MAGNESIUM 2 G PREMIX 50 ML IV NR (17:30)
[2021-12-16] VITALS (7 sets, daily range): BP systolic 98–118; BP diastolic 51–66
[2021-12-16 06:03] LABS: HEMATOCRIT. 23.2 % (42.0-52.0); HEMOGLOBIN. 7.5 g/dL (14.0-18.0); MEAN CORPUSCULAR HEMOGLOBIN 29.7 pg (28.0-32.0); MEAN CORPUSCULAR VOLUME 92.3 fL (80.0-94.0); MEAN PLATELET VOLUME 7.1 fl (7.4-10.4); PLATELET 584 x1000/uL (130-400); RED BLOOD CELL COUNT 2.51 mill/uL (4.7-6.1); RED CELL DISTRIBUTION WIDTH 16.4 % (11.6-14.6)
[2021-12-16] MEDS: BLOOD SUGAR DIAGNOSTIC STRIP TEST SCH (06:25)
[2021-12-16] MEDS: INSULIN LISPRO 100 UNITS/ML SUBCUT SCH (06:28)
[2021-12-16] MEDS: PANTOPRAZOLE SODIUM 40 MG/VIAL IV SCH (09:09)
[2021-12-16] MEDS: FERROUS SULFATE 325MG TABLET PO SCH (09:09)
[2021-12-16] MEDS: POLYETHYLENE GLYCOL 3350 (17GM) 1 DOSE PACK PO SCH (09:09)
[2021-12-16] MEDS: ASCORBIC ACID 500 MG TABLET PO SCH (09:09)
[2021-12-16 10:45] LABS: PHOSPHORUS 4.9 mg/dL (2.5-4.9)
[2021-12-16 11:25] LABS: PLATELET ESTIMATE INCREASED
== END 2021-12-16 11:30 | DRG 871 ==
LOC: ER 16:20 → EDBEDREQ 16:43 → ENRESERV 23:17 → CVICU 23:57 → EDBD 23:57 → 3WST 12-11 23:31
PROVIDERS: ADMIT Internal Medicine; ATTEND Internal Medicine
PROC: 02HV33Z Insertion of Infusion Device into Superior Vena Cava, Percutaneous Approach (ICD-10-PCS; 2021-11-27)
PROC: B548ZZA Ultrasonography of Superior Vena Cava, Guidance (ICD-10-PCS; 2021-11-27)
PROC: 02HV33Z Insertion of Infusion Device into Superior Vena Cava, Percutaneous Approach (ICD-10-PCS; 2021-11-28)
PROC: B5181ZA Fluoroscopy of Superior Vena Cava using Low Osmolar Contrast, Guidance (ICD-10-PCS; 2021-11-28)
PROC: 5A1D70Z Performance of Urinary Filtration, Intermittent, Less than 6 Hours Per Day (ICD-10-PCS; 2021-11-28)
PROC: 5A1D70Z Performance of Urinary Filtration, Intermittent, Less than 6 Hours Per Day (ICD-10-PCS; 2021-11-29)
PROC: 5A1935Z Respiratory Ventilation, Less than 24 Consecutive Hours (ICD-10-PCS; 2021-11-29)
PROC: 5A1D70Z Performance of Urinary Filtration, Intermittent, Less than 6 Hours Per Day (ICD-10-PCS; 2021-12-01)
PROC: 5A1935Z Respiratory Ventilation, Less than 24 Consecutive Hours (ICD-10-PCS; 2021-12-01)
PROC: 5A1D70Z Performance of Urinary Filtration, Intermittent, Less than 6 Hours Per Day (ICD-10-PCS; 2021-12-03)
PROC: 4A00X4Z Measurement of Central Nervous Electrical Activity, External Approach (ICD-10-PCS; 2021-12-04)
PROC: 5A1D70Z Performance of Urinary Filtration, Intermittent, Less than 6 Hours Per Day (ICD-10-PCS; 2021-12-05)
PROC: 5A1935Z Respiratory Ventilation, Less than 24 Consecutive Hours (ICD-10-PCS; 2021-12-06)
PROC: 5A1D70Z Performance of Urinary Filtration, Intermittent, Less than 6 Hours Per Day (ICD-10-PCS; 2021-12-08)
PROC: 0DB78ZX Excision of Stomach, Pylorus, Via Natural or Artificial Opening Endoscopic, Diagnostic (ICD-10-PCS; principal; 2021-12-15)
DX: A41.51 Sepsis due to Escherichia coli [E. coli] (principal); E11.00 Type 2 diabetes mellitus with hyperosmolarity without nonketotic hyperglycemic-hyperosmolar coma (NKHHC); N17.0 Acute kidney failure with tubular necrosis; G93.41 Metabolic encephalopathy; E43 Unspecified severe protein-calorie malnutrition; N18.6 End stage renal disease; R65.21 Severe sepsis with septic shock; J18.9 Pneumonia, unspecified organism; J96.01 Acute respiratory failure with hypoxia; I21.4 Non-ST elevation (NSTEMI) myocardial infarction; K72.00 Acute and subacute hepatic failure without coma; I63.9 Cerebral infarction, unspecified; M62.82 Rhabdomyolysis; N39.0 Urinary tract infection, site not specified; E87.20 Acidosis, unspecified; I13.11 Hypertensive heart and chronic kidney disease without heart failure, with stage 5 chronic kidney disease, or end stage renal disease; E11.22 Type 2 diabetes mellitus with diabetic chronic kidney disease; E11.65 Type 2 diabetes mellitus with hyperglycemia; E83.39 Other disorders of phosphorus metabolism; E83.51 Hypocalcemia; E87.5 Hyperkalemia; D63.1 Anemia in chronic kidney disease; R74.01 Elevation of levels of liver transaminase levels; K74.60 Unspecified cirrhosis of liver; D63.8 Anemia in other chronic diseases classified elsewhere; E78.5 Hyperlipidemia, unspecified; E83.41 Hypermagnesemia; S40.822A Blister (nonthermal) of left upper arm, initial encounter; K29.70 Gastritis, unspecified, without bleeding; M48.061 Spinal stenosis, lumbar region without neurogenic claudication; Z82.49 Family history of ischemic heart disease and other diseases of the circulatory system; Z99.2 Dependence on renal dialysis; Z68.34 Body mass index [BMI] 34.0-34.9, adult; Z20.822 Contact with and (suspected) exposure to COVID-19; X58.XXXA Exposure to other specified factors, initial encounter; Y93.89 Activity, other specified; Y92.89 Other specified places as the place of occurrence of the external cause; Y99.8 Other external cause status
CPT/HCPCS: 36415; 36556; 36600; 70551; 71045; 71250; 72148; 74176; 77001; 80048; 80053; 80061; 80076; 80202; 80305; 81003; 82010; 82140; 82270; 82330; 82375; 82533; 82550; 82553; 82607; 82728; 82746; 82805; 82962; 83036; 83540; 83550; 83605; 83735; 83880; 83930; 84100; 84134; 84145; 84443; 84484; 85025; 85044; 86705; 86709; 86803; 87077; 87186; 87340; 87426; 88305; 88312; 88313; 92610; 93005; 93306; 93880; 93970; 95816; 97110; 97162; 97165; 97530; 99291; A6261; C1752; C9113; C9803; J0610; J0696; J0885; J1100; J1650; J1815; J2185; J2250; J2405; J2543; J2704; J3370; J3475; J3490; J7030; J7050; J7060; A4315